=== PATIENT | male | born 1945 | race Caucasian/White ===

== ENCOUNTER 2022-10-21 13:02 | Emergency (ER) | payer OTHER ==
[~2022-10-21] VITALS: Ht 175.3 cm; Wt 136.0 kg
[2022-10-21 13:32] LABS: Basophils # (auto) 0.2 10 ^3/uL (0-0.2); Basophils % (auto) 1.1 % (0.0-2.0); Eosinophils # (auto) 0.2 10 ^3/uL (0-0.8); Eosinophils % (auto) 1.4 % (0.0-7.0); Hemoglobin 12.8 g/dL (13.5-17.5); Lymphocytes # (auto) 1.9 10 ^3/uL (0.4-5.4); Lymphocytes % (auto) 12.5 % (10.0-50.0); Mean Corpuscular Hemoglobin 29.9 pg (28.0-32.0); Mean Corpuscular Hgb Conc. 31.1 g/dL (32.0-36.0); Mean Corpuscular Volume 96.1 fL (80.0-100.0); Monocytes # (auto) 1.5 10 ^3/uL (0-1.3); Monocytes % (auto) 9.6 % (0.0-12.0); Neutrophils # (auto) 11.7 10 ^3/uL (1.6-8.6); Neutrophils % (auto) 75.4 % (37.0-80.0); Nucleated Red Blood Cells % 0.5 %; Red Blood Cells 4.27 10^6/uL (4.5-5.90); Red Cell Distribution Width 17.2 % (11.8-14.3); White Blood Cell 15.5 10^3/uL (4.4-10.8)
[2022-10-21 13:47] LABS: INR 1.07 (0.9-1.15); Partial Thromboplastin Time 25.3 sec (24.6-33.4)
[2022-10-21 13:51] LABS: Calcium 8.6 mg/dL (8.5-10.1)
[2022-10-21 13:55] LABS: BUN/Creatinine Ratio 17.8; Bilirubin, Total 0.5 mg/dL (0.2-1.0); Total Protein 6.8 g/dL (6.4-8.2)
[2022-10-21 14:16] LABS: Potassium 5.7 mmol/L (3.5-5.1)
[2022-10-21] MEDS ORDERED: IPRATROPIUM BROM 0.5 MG/2.5ML INH SOL NEB ONE (14:30)
[2022-10-21] MEDS ORDERED: InsuLIN REG 1unit/0.01ml Soln (100units/ml) IV ONE (14:30)
[2022-10-21] MEDS ORDERED: FUROSEMIDE 20 MG/2 ML VIAL IV ONE (14:30)
[2022-10-21] MEDS ORDERED: SODIUM BICARBONATE 8.4% INJ 50ML SYRINGE IV ONE (14:30)
[2022-10-21] MEDS ORDERED: ALBUTEROL SULF 2.5 MG/0.5ML(0.5%) NEB SOLN NEB ONE (14:30)
[2022-10-21] MEDS ORDERED: DEXTROSE (50%) 50ML SYRG IV ONE (14:30)
[2022-10-21] MEDS ORDERED: CALCIUM GLUC 1,000mg/50ml-NS 50 ML IV ONE (14:30)
[2022-10-21] MEDS ORDERED: DexAMETHasone SOD PHOS 10MG/1ML VIAL INJ IV ONE (14:30)
[2022-10-21] MEDS: MAGNESIUM SULFATE 1GM/100ML 100 ML IV SCH ×2 (15:32→16:38)
[2022-10-21] MEDS ORDERED: cefTRIAXone 1GM/50ML D5W 50 ML IV ONE (16:45)
[2022-10-21] MEDS ORDERED: AZITHROMYCIN 500MG/ 250ML 250 ML IV ONE (16:45)
[2022-10-21 22:00] VITALS: BP 119/83
== END 2022-10-21 18:32 | disposition short-term general hospital (02) ==
LOC: ER 13:02 → EDBD 13:02 → ER 18:32
DX: J18.9 Pneumonia, unspecified organism (principal); J44.9 Chronic obstructive pulmonary disease, unspecified; E87.5 Hyperkalemia; I50.9 Heart failure, unspecified; E11.22 Type 2 diabetes mellitus with diabetic chronic kidney disease; N18.9 Chronic kidney disease, unspecified; Z20.822 Contact with and (suspected) exposure to COVID-19
CPT/HCPCS: 36415; 71045; 71250; 80053; 82962; 83735; 83880; 84132; 84484; 85025; 85610; 85730; 87426; 87804; 93306; 94644; 96365; 96366; 96368; 96375; 99291; J0456; J0610; J0696; J1100; J1815; J1940; J3475; J7042; J7644

== ENCOUNTER 2024-01-09 14:32 | Inpatient (IN) | payer OTHER ==
[~2024-01-09] VITALS: Ht 177.8 cm; Wt 138.8 kg
[2024-01-09 15:33] LABS: Red Blood Cells 3.76 10^6/uL (4.5-5.90)
[2024-01-09 15:35] LABS: Hematocrit 34.1 % (41.0-53.0); Hemoglobin 10.5 g/dL (13.5-17.5); Mean Corpuscular Hemoglobin 27.9 pg (28.0-32.0); Mean Corpuscular Hgb Conc. 30.8 g/dL (32.0-36.0); Mean Corpuscular Volume 90.7 fL (80.0-100.0); Red Cell Distribution Width 17.3 % (11.8-14.3)
[2024-01-09 15:40] LABS: Basophils % (manual) 0 (0.0-2.0); Blast Cells 0; Eosinophils % (manual) 0 (0-7); Metamyelocytes % 0; Myelocytes % 0; Promyelocytes % 0; Reactive Lymphocytes 0; White Blood Cell 31.6 10^3/uL (4.4-10.8)
[2024-01-09 15:43] VITALS: PULSE 69; RESP 16; O2SAT 98
[2024-01-09 15:51] LABS: Alanine Aminotransferase 32 U/L (7-40); Albumin 3.1 g/dL (3.2-4.8); Alkaline Phosphatase 202 U/L (46-116); Anion Gap 12 (5-15); Aspartate Aminotransferase 51 U/L (13-40); BUN/Creatinine Ratio 19.6 (10.0-20.0); Bilirubin, Total 1.4 mg/dL (0.2-1.0); Calcium 7.9 mg/dL (8.5-10.1); Carbon Dioxide 23 mmol/L (20-30); Chloride 97 mmol/L (98-107); Glucose 127 mg/dL (74-106); Potassium 4.8 mmol/L (3.5-5.1); Sodium 132 mmol/L (136-145); Total Protein 6.1 g/dL (5.7-8.2)
[2024-01-09 15:59] LABS: Blood Urea Nitrogen 122 mg/dL (9-23)
[2024-01-09] MEDS: LIDOCAINE 2% JELLY 11ml (GLYDO) UR ONE (16:28)
[2024-01-09 16:32] LABS: Anisocytosis Slight; Band Neutrophils % (manual) 5; Large Platelets FEW; Lymphocytes % (manual) 5 (10.0-50.0); Monocytes % (manual) 5 (0-12); Platelet Estimate Adequate
[2024-01-09 16:33] LABS: Target Cell FEW
[2024-01-09 17:12] LABS: Urine Bacteria NONE SEEN /hpf (None Seen); Urine Blood Negative /uL (Negative); Urine Clarity HAZY (Clear); Urine Color Yellow (Yellow); Urine Hyaline Cast MOD /lpf (0 - 2); Urine Protein, UAD 1+ (Negative); Urine Specific Gravity 1.016 (1.001-1.035); Urine WBC 10 /hpf (0 - 3)
[2024-01-09 17:25] LABS: COVID19 ANTIGEN SOFIA FIA NEGATIVE (NEGATIVE); Rapid Influenza A Negative (Negative); Rapid Influenza B Negative (Negative)
[2024-01-09] MEDS ORDERED: NOREPINEPHRINE 8 MG/250ML KIT 250 ML IV SCH ×2 (17:30)
[2024-01-09] MEDS: NOREPINEPHRINE 8 MG/250ML KIT 250 ML IV SCH (18:24)
[2024-01-09] MEDS: cefTRIAXone 1GM/50ML D5W 50 ML IV ONE (18:39)
[2024-01-09] MEDS ORDERED: NITROGLYCERIN 0.4 MG SL TAB SL PRN (20:00)
[2024-01-09] MEDS ORDERED: ONDANSETRON HCL 4 MG/2 ML VIAL IV PRN (20:00)
[2024-01-09] MEDS ORDERED: MORPHINE SULFATE INJ 2 MG/ml SYRG IV PRN (20:00)
[2024-01-09] MEDS ORDERED: ALBUMIN 25% 50 ML IV ONE (20:00)
[2024-01-09] MEDS ORDERED: DEXTROSE (50%) 50ML SYRG IV PRN (20:00)
[2024-01-09] MEDS ORDERED: DOCUSATE SOD 100 MG CAP PO PRN (20:00)
[2024-01-09 20:50] LABS: Magnesium 1.6 mg/dL (1.6-2.6)
[2024-01-09] MEDS ORDERED: CARV6.2551 PO (20:51)
[2024-01-09] MEDS ORDERED: ALLO100T PO (20:51)
[2024-01-09] MEDS ORDERED: LISI-275 PO (20:51)
[2024-01-09] MEDS ORDERED: APIX5TAB PO (20:51)
[2024-01-09] MEDS ORDERED: TAMS0.4C36 PO (20:51)
[2024-01-09] MEDS: BUMETANIDE 2.5mg/10ml (0.25 mg/ml) INJ IV ONE ×2 (21:28→21:46)
[2024-01-09] MEDS: CARVEDILOL 3.125 MG TAB PO SCH (21:29)
[2024-01-09] MEDS: ACCU-CHEK COMFORT CURVE STRIP VI SCH (21:39)
[2024-01-09] MEDS: InsuLIN REG 1unit/0.01ml Soln (100units/ml) SC SCH (21:44)
[2024-01-09] MEDS: HEPARIN SODIUM (PORCINE) 5000 UNITS/ML 1ML VIAL SC SCH (21:45)
[2024-01-09 21:48] LABS: % Iron Saturation 7.4 % (20-55)
[2024-01-09] MEDS: AZITHROMYCIN 500MG/ 250ML 250 ML IV ONE (23:35)
[2024-01-10 00:13] VITALS: BP 102/41; PULSE 75; RESP 21; TEMP 98.1; O2SAT 5; O2SAT 95
[2024-01-10 05:21] LABS: Hematocrit 32.7 % (41.0-53.0); Hemoglobin 10.4 g/dL (13.5-17.5); Mean Corpuscular Hemoglobin 28.4 pg (28.0-32.0); Mean Corpuscular Hgb Conc. 31.6 g/dL (32.0-36.0); Mean Corpuscular Volume 89.7 fL (80.0-100.0); Red Blood Cells 3.65 10^6/uL (4.5-5.90); Red Cell Distribution Width 17.4 % (11.8-14.3); White Blood Cell 27.3 10^3/uL (4.4-10.8)
[2024-01-10 05:28] LABS: Basophils % (manual) 0 (0.0-2.0); Blast Cells 0; Eosinophils % (manual) 0 (0-7); Lymphocytes % (manual) 0 (10.0-50.0); Metamyelocytes % 0; Myelocytes % 0; Promyelocytes % 0; Reactive Lymphocytes 0
[2024-01-10 05:39] LABS: Alanine Aminotransferase 28 U/L (7-40); Albumin 3.3 g/dL (3.2-4.8); Alkaline Phosphatase 201 U/L (46-116); Anion Gap 12 (5-15); Aspartate Aminotransferase 42 U/L (13-40); BUN/Creatinine Ratio 14.9 (10.0-20.0); Calcium 8.3 mg/dL (8.5-10.1); Carbon Dioxide 21 mmol/L (20-30); Chloride 97 mmol/L (98-107); Glucose 148 mg/dL (74-106); Potassium 4.6 mmol/L (3.5-5.1); Sodium 130 mmol/L (136-145)
[2024-01-10 05:40] LABS: Total Protein 6.5 g/dL (5.7-8.2)
[2024-01-10 05:45] LABS: Blood Urea Nitrogen 100 mg/dL (9-23)
[2024-01-10] MEDS: FUROSEMIDE 40 MG/4 ML VIAL IV SCH (06:30)
[2024-01-10 06:45] VITALS: O2SAT 95
[2024-01-10 07:36] LABS: Band Neutrophils % (manual) 4; Monocytes % (manual) 8 (0-12); Platelet Estimate Adequate; Target Cell FEW
[2024-01-10 07:45] VITALS: PULSE 84; RESP 15; O2SAT 92
[2024-01-10] MEDS: CALCIUM ACETATE 667 MG CAP PO SCH (08:29)
[2024-01-10] MEDS: DOPamine 1600MCG/ML D5W 250 ML IV SCH (08:29)
[2024-01-10] MEDS: cefTRIAXone 1GM/50ML D5W 50 ML IV SCH (09:27)
[2024-01-10] MEDS: MORPHINE SULFATE INJ 2 MG/ml SYRG IV ONE (09:58)
[2024-01-10] MEDS: AZITHROMYCIN 500MG/ 250ML 250 ML IV SCH (12:05)
[2024-01-10] MEDS: PANTOPRAZOLE 40 MG/10 ML VIAL INJ IV SCH (12:05)
[2024-01-10] MEDS: TAMSULOSIN HYDROCHLORIDE 0.4 MG CAP PO SCH (12:06)
[2024-01-10 15:06] LABS: Triglycerides 107 mg/dL (< 150)
[2024-01-10 15:07] LABS: LDL Cholesterol 27 mg/dL (< 100)
[2024-01-10 15:08] LABS: Cholesterol 73 mg/dL (< 200); HDL Cholesterol 13 mg/dL (40-59)
[2024-01-10 15:13] LABS: INR 1.58 (0.9-1.15); Prothrombin Time 16.1 sec (9.3-11.8)
[2024-01-10] MEDS: SODIUM CHL 0.9% 1000 ML BAG XX ONE (16:00)
[2024-01-10] MEDS: ALBUMIN 25% 50 ML IV ONE (16:01)
[2024-01-10] MEDS: MEROPENEM 1GM IVPB 50 ML IV ONE (17:45)
[2024-01-10] MEDS: IRON SUCROSE COMPLEX 100 ML IV SCH (18:08)
[2024-01-10 19:00] VITALS: O2SAT 94
[2024-01-10 19:30] VITALS: PULSE 82; RESP 18; O2SAT 90
[2024-01-11] VITALS (136 sets, daily range): BP systolic 85–121; BP diastolic 37–64; PULSE 71–112; RESP 11–25; TEMP 96.5–98.9; O2SAT 87–99
[2024-01-11] MEDS: MEROPENEM 1GM IVPB 50 ML IV SCH (00:40)
[2024-01-11 04:30] LABS: Basophils # (auto) 0 10 ^3/uL (0-0.2); Basophils % (auto) 0.2 % (0.0-2.0); Eosinophils # (auto) 0.1 10 ^3/uL (0-0.8); Eosinophils % (auto) 0.2 % (0.0-7.0); Hematocrit 36.6 % (41.0-53.0); Hemoglobin 11.6 g/dL (13.5-17.5); Lymphocytes # (auto) 3.3 10 ^3/uL (0.4-5.4); Lymphocytes % (auto) 15.8 % (10.0-50.0); Mean Corpuscular Hemoglobin 28.5 pg (28.0-32.0); Mean Corpuscular Hgb Conc. 31.6 g/dL (32.0-36.0); Mean Corpuscular Volume 90.1 fL (80.0-100.0); Monocytes # (auto) 1.2 10 ^3/uL (0-1.3); Monocytes % (auto) 5.9 % (0.0-12.0); Neutrophils # (auto) 16.5 10 ^3/uL (1.6-8.6); Neutrophils % (auto) 77.9 % (37.0-80.0); Red Blood Cells 4.06 10^6/uL (4.5-5.90); Red Cell Distribution Width 17.9 % (11.8-14.3); White Blood Cell 21.1 10^3/uL (4.4-10.8)
[2024-01-11 04:45] LABS: INR 1.56 (0.9-1.15); Prothrombin Time 15.9 sec (9.3-11.8)
[2024-01-11 05:06] LABS: Alanine Aminotransferase 22 U/L (7-40); Albumin 3.3 g/dL (3.2-4.8); Alkaline Phosphatase 177 U/L (46-116); Anion Gap 12 (5-15); Aspartate Aminotransferase 27 U/L (13-40); BUN/Creatinine Ratio 14.5 (10.0-20.0); Calcium 8.6 mg/dL (8.5-10.1); Carbon Dioxide 24 mmol/L (20-30); Chloride 97 mmol/L (98-107); Glucose 127 mg/dL (74-106); Potassium 4.3 mmol/L (3.5-5.1); Sodium 133 mmol/L (136-145)
[2024-01-11 05:07] LABS: Bilirubin, Total 0.8 mg/dL (0.2-1.0); Total Protein 6.5 g/dL (5.7-8.2)
[2024-01-11 05:12] LABS: Blood Urea Nitrogen 85 mg/dL (9-23)
[2024-01-11] MEDS: ACETAMINOPHEN 325 MG TAB PO PRN (07:01)
[2024-01-11] MEDS ORDERED: FURO20TA3 PO (07:49)
[2024-01-11] MEDS ORDERED: INSU1INJ3 (07:49)
[2024-01-11] MEDS ORDERED: SODIPOW6 (07:49)
[2024-01-11] MEDS ORDERED: AMLO1TAB22 PO (07:49)
[2024-01-11 08:57] LABS: Hepatitis B Surface Antigen Negative (Negative)
[2024-01-11 09:18] LABS: Hepatitis A Ab IgM Negative
[2024-01-11 09:19] LABS: Hepatitis B Core IgM Negative; Hepatitis C Antibody Negative (Negative)
[2024-01-11] MEDS: SODIUM CHL 0.9% 1000 ML BAG XX ONE (09:29)
[2024-01-11] MEDS: ALBUMIN 25% 100 ML IV SCH (10:40)
[2024-01-11] MEDS: VASOPRESSIN 20 UNITS in SODIUM CHL 0.9% 99 ML IV SCH (15:18)
[2024-01-11 15:43] LABS: Base Excess -6.3 mmol/L (-2.0-2.0)
[2024-01-11] MEDS: IPRATROPIUM BROM 0.5 MG/2.5ML INH SOL NEB PRN (15:47)
[2024-01-11] MEDS: LEVALBUTEROL HCL 1.25 MG/3 ML NEB NEB PRN (15:47)
[2024-01-11] MEDS: EPINEPHrine HCL 250 ML IV SCH (17:20)
[2024-01-11] MEDS: IPRATROPIUM BROM 0.5 MG/2.5ML INH SOL NEB SCH (17:38)
[2024-01-11] MEDS: LEVALBUTEROL HCL 1.25 MG/3 ML NEB NEB SCH (17:38)
[2024-01-11] MEDS: Nepro With Carbsteady ButterPecan 8oz Carton PO SCH (18:00)
[2024-01-11] MEDS: ETOMIDATE (2MG/ML) 20ML VIAL IV ONE ×2 (18:52→18:57)
[2024-01-11] MEDS: ROCURONIUM 10MG/ML 10ML VIAL IV ONE ×2 (18:52→18:57)
[2024-01-11] MEDS: PHENYLEPHRINE IV 250 ML IV ONE (18:56)
[2024-01-11] MEDS: fentaNYL Drip 2500mCg/250mlNS 250 ML IV ONE (19:05)
[2024-01-11] MEDS: MIDAZOLAM DRIP 50 mg/50mL 50 ML IV ONE (19:05)
[2024-01-11] MEDS: PHENYLEPHRINE IV 250 ML IV SCH (19:45)
[2024-01-11] MEDS: fentaNYL Drip 2500mCg/250mlNS 250 ML IV SCH (19:55)
[2024-01-11] MEDS: MIDAZOLAM DRIP 50 mg/50mL 50 ML IV SCH (19:55)
[2024-01-11] MEDS: HYDROCORTISONE SOD SUCC 100 MG/2ML INJ VIAL IV ONE (20:06)
[2024-01-11 20:24] LABS: Base Excess -8.6 mmol/L (-2.0-2.0)
[2024-01-11] MEDS ORDERED: EPOETIN ALFA-EPBX 10,000 UNIT/1ML VIAL SC ONE (21:00)
[2024-01-11] MEDS: HYDROCORTISONE SOD SUCC 100 MG/2ML INJ VIAL IV SCH (21:39)
[2024-01-11] MEDS: SODIUM BICARB 8.4% 50Meq/50ml SYR Vial IV ONE ×2 (21:39→23:36)
[2024-01-11] MEDS: PHENYLEPHRINE INJ 80 MG in SODIUM CHL 0.9% 242 ML IV SCH (22:16)
[2024-01-11] MEDS: EPINEPHrine HCL INJECTION 16 MG in D5W 5% 234 ML IV SCH (22:16)
[2024-01-11] MEDS: NOREPINEPHRINE BITARTRATE 32 MG in SODIUM CHL 0.9% 218 ML IV SCH (22:17)
[2024-01-11] MEDS: SODIUM CHLORIDE 0.9% 1,000 ML IV ONE (23:36)
[2024-01-11] MEDS: SODIUM CHLORIDE 0.9% 500 ML IV ONE (23:36)
[2024-01-12] VITALS (135 sets, daily range): BP systolic 104–165; BP diastolic 52–94; PULSE 77–111; RESP 20–26; TEMP 97.9–99.1; O2SAT 90–97
[2024-01-12] LABS: Base Excess -7.6 mmol/L (-2.0-2.0)
[2024-01-12] MEDS: SODIUM BICARB 50mEq/50ml Vial 150 ML in D5W 5% 1,000 ML IV SCH (00:33)
[2024-01-12 03:53] LABS: Hematocrit 35.9 % (41.0-53.0); Hemoglobin 11.1 g/dL (13.5-17.5); Mean Corpuscular Hemoglobin 27.8 pg (28.0-32.0); Mean Corpuscular Hgb Conc. 31.1 g/dL (32.0-36.0); Mean Corpuscular Volume 89.4 fL (80.0-100.0); Red Blood Cells 4.01 10^6/uL (4.5-5.90); Red Cell Distribution Width 17.7 % (11.8-14.3); White Blood Cell 23.8 10^3/uL (4.4-10.8)
[2024-01-12 03:56] LABS: Alanine Aminotransferase 16 U/L (7-40); Albumin 3.5 g/dL (3.2-4.8); Alkaline Phosphatase 143 U/L (46-116); Anion Gap 20 (5-15); Aspartate Aminotransferase 16 U/L (13-40); BUN/Creatinine Ratio 14.4 (10.0-20.0); Calcium 8.5 mg/dL (8.7-10.4); Carbon Dioxide 18 mmol/L (20-30); Chloride 98 mmol/L (98-107); Magnesium 1.8 mg/dL (1.6-2.6); Potassium 4.8 mmol/L (3.5-5.1); Sodium 136 mmol/L (136-145)
[2024-01-12 03:57] LABS: Bilirubin, Total 0.9 mg/dL (0.2-1.0); Phosphorus 7.5 mg/dL (2.4-5.1); Total Protein 6.4 g/dL (5.7-8.2)
[2024-01-12 03:58] LABS: Basophils % (manual) 0 (0.0-2.0); Blast Cells 0; Promyelocytes % 0; Reactive Lymphocytes 0
[2024-01-12 04:07] LABS: Blood Urea Nitrogen 62 mg/dL (9-23); Glucose 265 mg/dL (74-106)
[2024-01-12 04:33] LABS: Band Neutrophils % (manual) 22; Eosinophils % (manual) 1 (0-7); Lymphocytes % (manual) 1 (10.0-50.0); Metamyelocytes % 2; Monocytes % (manual) 1 (0-12); Myelocytes % 2; Target Cell FEW
[2024-01-12 04:34] LABS: Large Platelets FEW; Platelet Estimate Adequa; Stomatocytes Few
[2024-01-12] MEDS: SODIUM CHL 0.9% 1000 ML BAG XX ONE (07:00)
[2024-01-12 08:08] LABS: Base Excess -5.3 mmol/L (-2.0-2.0)
[2024-01-13] VITALS (107 sets, daily range): BP systolic 84–140; BP diastolic 49–80; PULSE 71–93; RESP 10–25; TEMP 97.4–98.8; O2SAT 91–97
[2024-01-13 04:46] LABS: Basophils # (auto) 0.3 10 ^3/uL (0-0.2); Basophils % (auto) 0.9 % (0.0-2.0); Eosinophils # (auto) 0 10 ^3/uL (0-0.8); Eosinophils % (auto) 0.1 % (0.0-7.0); Hematocrit 37.5 % (41.0-53.0); Hemoglobin 11.7 g/dL (13.5-17.5); Lymphocytes # (auto) 0.6 10 ^3/uL (0.4-5.4); Lymphocytes % (auto) 1.6 % (10.0-50.0); Mean Corpuscular Hemoglobin 27.5 pg (28.0-32.0); Mean Corpuscular Hgb Conc. 31.2 g/dL (32.0-36.0); Mean Corpuscular Volume 88.1 fL (80.0-100.0); Monocytes # (auto) 0.9 10 ^3/uL (0-1.3); Monocytes % (auto) 2.4 % (0.0-12.0); Neutrophils # (auto) 33.8 10 ^3/uL (1.6-8.6); Nucleated Red Blood Cells % 1.5 %; Red Blood Cells 4.25 10^6/uL (4.5-5.90)
[2024-01-13 04:47] LABS: White Blood Cell 35.6 10^3/uL (4.4-10.8)
[2024-01-13 05:16] LABS: Anion Gap 10 (5-15); Carbon Dioxide 27 mmol/L (20-30); Chloride 100 mmol/L (98-107); Potassium 3.9 mmol/L (3.5-5.1); Sodium 137 mmol/L (136-145)
[2024-01-13 05:22] LABS: Glucose 228 mg/dL (74-106)
[2024-01-13 05:23] LABS: BUN/Creatinine Ratio 13.5 (10.0-20.0)
[2024-01-13 05:33] LABS: Blood Urea Nitrogen 45 mg/dL (9-23)
[2024-01-13 08:28] LABS: Base Excess 4.4 mmol/L (-2.0-2.0)
[2024-01-13] MEDS: FUROSEMIDE 40 MG/4 ML VIAL IV SCH (16:54)
[2024-01-14] VITALS (109 sets, daily range): BP systolic 102–136; BP diastolic 39–74; PULSE 62–92; RESP 12–25; TEMP 96.4–97.7; O2SAT 89–100
[2024-01-14] MEDS: SODIUM BICARB 8.4% 50Meq/50ml SYR INJ ONE (01:42)
[2024-01-14] MEDS: SODIUM BICARB 8.4% 50Meq/50ml SYR Vial IV ONE (01:42)
[2024-01-14 04:07] LABS: Mean Corpuscular Hemoglobin 28.6 pg (28.0-32.0)
[2024-01-14 04:08] LABS: Hematocrit 38.8 % (41.0-53.0); Hemoglobin 12.6 g/dL (13.5-17.5); Mean Corpuscular Hgb Conc. 32.4 g/dL (32.0-36.0); Mean Corpuscular Volume 88.3 fL (80.0-100.0); Red Blood Cells 4.39 10^6/uL (4.5-5.90); Red Cell Distribution Width 16.9 % (11.8-14.3)
[2024-01-14 04:13] LABS: Alanine Aminotransferase 11 U/L (7-40); Albumin 2.9 g/dL (3.2-4.8); Alkaline Phosphatase 131 U/L (46-116); Anion Gap 9 (5-15); Aspartate Aminotransferase 16 U/L (13-40); BUN/Creatinine Ratio 14.9 (10.0-20.0); Bilirubin, Total 1.2 mg/dL (0.2-1.0); Blood Urea Nitrogen 53 mg/dL (9-23); Calcium 8.8 mg/dL (8.7-10.4); Carbon Dioxide 27 mmol/L (20-30); Chloride 100 mmol/L (98-107); Glucose 208 mg/dL (74-106); Potassium 3.8 mmol/L (3.5-5.1); Sodium 136 mmol/L (136-145); Total Protein 5.8 g/dL (5.7-8.2)
[2024-01-14 04:32] LABS: White Blood Cell 37.6 10^3/uL (4.4-10.8)
[2024-01-14 04:33] LABS: Band Neutrophils % (manual) 0; Basophils % (manual) 0 (0.0-2.0); Blast Cells 0; Eosinophils % (manual) 0 (0-7); Metamyelocytes % 0; Myelocytes % 0; Promyelocytes % 0; Reactive Lymphocytes 0
[2024-01-14 05:22] LABS: Anisocytosis Slight; Lymphocytes % (manual) 2 (10.0-50.0); Monocytes % (manual) 4 (0-12); Platelet Estimate Adequate
[2024-01-14 05:23] LABS: Target Cell MODERATE
[2024-01-14 05:24] LABS: Hypochromia Slight
[2024-01-14] MEDS: SODIUM CHL 0.9% 1000 ML BAG XX ONE (07:00)
[2024-01-14 08:09] LABS: Base Excess 5.3 mmol/L (-2.0-2.0)
[2024-01-14] MEDS ORDERED: CLINIMIX PER PHARMACY 0 ML IV SCH (18:00)
[2024-01-14] MEDS: AMINO ACID INFUSION IN D10W 1,000 ML IV SCH (20:22)
[2024-01-15] VITALS (103 sets, daily range): BP systolic 56–164; BP diastolic -8–79; PULSE 56–76; RESP 13–25; TEMP 96.3–98.6; O2SAT 89–96
[2024-01-15] MEDS: InsuLIN REG 1unit/0.01ml Soln (100units/ml) SC SCH
[2024-01-15] MEDS ORDERED: DEXTROSE (50%) 50ML SYRG IV SCH
[2024-01-15] MEDS: ACCU-CHEK COMFORT CURVE STRIP VI SCH
[2024-01-15 04:11] LABS: Hematocrit 36.4 % (41.0-53.0); Hemoglobin 11.6 g/dL (13.5-17.5); Mean Corpuscular Hemoglobin 28.2 pg (28.0-32.0); Mean Corpuscular Hgb Conc. 31.9 g/dL (32.0-36.0); Mean Corpuscular Volume 88.3 fL (80.0-100.0); Red Blood Cells 4.12 10^6/uL (4.5-5.90); Red Cell Distribution Width 17.2 % (11.8-14.3); White Blood Cell 26.2 10^3/uL (4.4-10.8)
[2024-01-15 04:16] LABS: Basophils % (manual) 0 (0.0-2.0); Blast Cells 0; Eosinophils % (manual) 0 (0-7); Myelocytes % 0; Promyelocytes % 0; Reactive Lymphocytes 0
[2024-01-15 04:25] LABS: Alanine Aminotransferase 10 U/L (7-40); Albumin 2.8 g/dL (3.2-4.8); Alkaline Phosphatase 115 U/L (46-116); Anion Gap 8 (5-15); Aspartate Aminotransferase 15 U/L (13-40); BUN/Creatinine Ratio 18.4 (10.0-20.0); Calcium 8.6 mg/dL (8.7-10.4); Carbon Dioxide 28 mmol/L (20-30); Chloride 101 mmol/L (98-107); Glucose 251 mg/dL (74-106); Magnesium 1.6 mg/dL (1.6-2.6); Potassium 3.6 mmol/L (3.5-5.1); Sodium 137 mmol/L (136-145)
[2024-01-15 04:26] LABS: Bilirubin, Total 0.8 mg/dL (0.2-1.0); Blood Urea Nitrogen 63 mg/dL (9-23); Phosphorus 3.9 mg/dL (2.4-5.1); Total Protein 5.5 g/dL (5.7-8.2)
[2024-01-15 05:17] LABS: Band Neutrophils % (manual) 6; Lymphocytes % (manual) 4 (10.0-50.0); Metamyelocytes % 1; Monocytes % (manual) 6 (0-12)
[2024-01-15 05:19] LABS: Platelet Estimate Adequate; Target Cell FEW
[2024-01-15 05:20] LABS: Anisocytosis Slight; Large Platelets FEW
[2024-01-15] MEDS: SODIUM CHL 0.9% 1000 ML BAG XX ONE (07:00)
[2024-01-15 07:29] LABS: Base Excess 2.3 mmol/L (-2.0-2.0)
[2024-01-15] MEDS: POTASSIUM CHL 20MEQ/100ML 100 ML IV ONE (11:00)
[2024-01-15] MEDS ORDERED: ENOXAPARIN SOD 150 MG/1 ML SYRINGE SC ONE (15:45)
[2024-01-15] MEDS: MAGNESIUM SULFATE 1GM/100ML 100 ML IV ONE (16:02)
[2024-01-15 17:07] LABS: INR 1.3 (0.9-1.15); Partial Thromboplastin Time 31.8 SEC (24.5-34.5); Prothrombin Time 13.4 sec (9.3-11.8)
[2024-01-15] MEDS: CEFEPIME 2GM/50ML NS 50 ML IV ONE (17:11)
[2024-01-15] MEDS: HEPARIN DRIP/D5W 100UNITS/ML 250 ML IV SCH (18:38)
[2024-01-15] MEDS: HYDROCORTISONE SOD SUCC 100 MG/2ML INJ VIAL IV SCH (21:30)
[2024-01-16] VITALS (100 sets, daily range): BP systolic 84–145; BP diastolic 39–75; PULSE 45–81; RESP 17–19; TEMP 97.7–98.8; O2SAT 89–98
[2024-01-16 01:40] LABS: INR 1.27 (0.9-1.15); Partial Thromboplastin Time 32.2 SEC (24.5-34.5); Prothrombin Time 13.1 sec (9.3-11.8)
[2024-01-16] MEDS: HEPARIN SODIUM (PORCINE) 5000 UNITS/ML 1ML VIAL IV ONE (03:04)
[2024-01-16 04:15] LABS: Hematocrit 36.4 % (41.0-53.0); Hemoglobin 11.4 g/dL (13.5-17.5); Mean Corpuscular Hemoglobin 28.2 pg (28.0-32.0); Mean Corpuscular Hgb Conc. 31.3 g/dL (32.0-36.0); Red Blood Cells 4.05 10^6/uL (4.5-5.90); Red Cell Distribution Width 17.1 % (11.8-14.3); White Blood Cell 21.5 10^3/uL (4.4-10.8)
[2024-01-16 04:21] LABS: Basophils % (manual) 0 (0.0-2.0); Blast Cells 0; Eosinophils % (manual) 0 (0-7); Myelocytes % 0; Promyelocytes % 0; Reactive Lymphocytes 0
[2024-01-16 04:31] LABS: Albumin 3.3 g/dL (3.2-4.8); Alkaline Phosphatase 105 U/L (46-116); Anion Gap 7 (5-15); Aspartate Aminotransferase 17 U/L (13-40); BUN/Creatinine Ratio 19.6 (10.0-20.0); Blood Urea Nitrogen 56 mg/dL (9-23); Calcium 8.7 mg/dL (8.7-10.4); Carbon Dioxide 29 mmol/L (20-30); Chloride 101 mmol/L (98-107); Glucose 196 mg/dL (74-106); Magnesium 1.9 mg/dL (1.6-2.6); Phosphorus 4.3 mg/dL (2.4-5.1); Potassium 3.7 mmol/L (3.5-5.1); Sodium 137 mmol/L (136-145)
[2024-01-16 04:32] LABS: Bilirubin, Total 0.8 mg/dL (0.2-1.0); Total Protein 5.9 g/dL (5.7-8.2)
[2024-01-16 04:34] LABS: Alanine Aminotransferase 9 U/L (7-40)
[2024-01-16 04:46] LABS: Anisocytosis Slight; Band Neutrophils % (manual) 2; Lymphocytes % (manual) 8 (10.0-50.0); Metamyelocytes % 1; Monocytes % (manual) 9 (0-12); Platelet Estimate Adequate
[2024-01-16 04:47] LABS: Target Cell MODERATE
[2024-01-16 06:59] LABS: Base Excess 3.3 mmol/L (-2.0-2.0)
[2024-01-16 08:30] LABS: INR 1.31 (0.9-1.15); Partial Thromboplastin Time 63.8 SEC (24.5-34.5); Prothrombin Time 13.5 sec (9.3-11.8)
[2024-01-16] MEDS: IOHEXOL 300 MG/ML 100ML BOTTLE IJ ONE (08:33)
[2024-01-16] MEDS: GASTROGRAFIN 30 ML SOL ONE (08:33)
[2024-01-16] MEDS ORDERED: ENOXAPARIN SOD 150 MG/1 ML SYRINGE SC SCH (10:00)
[2024-01-16] MEDS ORDERED: CEFEPIME 1GM/ 50ML 50 ML IV SCH (10:00)
[2024-01-16] MEDS: CEFEPIME 2GM/50ML NS 50 ML IV SCH (10:18)
[2024-01-16] MEDS: MAGNESIUM SULFATE 1GM/100ML 100 ML IV ONE (13:17)
[2024-01-16] MEDS: POTASSIUM CHL 20MEQ/100ML 100 ML IV ONE (14:34)
[2024-01-16 14:53] LABS: INR 1.34 (0.9-1.15); Prothrombin Time 13.8 sec (9.3-11.8)
[2024-01-16] MEDS ORDERED: DOPamine 1600MCG/ML D5W 250 ML IV SCH (18:00)
[2024-01-16] MEDS: DOPamine 1600MCG/ML D5W 250 ML IV SCH (19:07)
[2024-01-16 21:06] LABS: INR 1.27 (0.9-1.15); Partial Thromboplastin Time 50.4 SEC (24.5-34.5); Prothrombin Time 13.1 sec (9.3-11.8)
[2024-01-16] MEDS: Nepro With Carb Steady 1 Liter Bottle GT SCH (21:26)
[2024-01-17] VITALS (107 sets, daily range): BP systolic 79–180; BP diastolic 36–78; PULSE 56–99; RESP 16–20; TEMP 97.9–99; O2SAT 90–97
[2024-01-17 02:39] LABS: INR 1.26 (0.9-1.15); Partial Thromboplastin Time 33.7 SEC (24.5-34.5)
[2024-01-17] MEDS: HEPARIN DRIP/D5W 100UNITS/ML 250 ML IV SCH ×3 (03:00→20:15)
[2024-01-17] MEDS: HEPARIN SODIUM (PORCINE) 5000 UNITS/ML 1ML VIAL IV ONE (03:18)
[2024-01-17 04:26] LABS: Hematocrit 36.1 % (41.0-53.0); Hemoglobin 11.5 g/dL (13.5-17.5); Mean Corpuscular Hemoglobin 28.3 pg (28.0-32.0); Mean Corpuscular Hgb Conc. 31.7 g/dL (32.0-36.0); Mean Corpuscular Volume 89.2 fL (80.0-100.0); Red Blood Cells 4.05 10^6/uL (4.5-5.90); Red Cell Distribution Width 17.3 % (11.8-14.3); White Blood Cell 24.7 10^3/uL (4.4-10.8)
[2024-01-17 04:29] LABS: Basophils % (manual) 0 (0.0-2.0); Blast Cells 0; Promyelocytes % 0; Reactive Lymphocytes 0
[2024-01-17 04:41] LABS: Alanine Aminotransferase 14 U/L (7-40); Albumin 3.2 g/dL (3.2-4.8); Alkaline Phosphatase 107 U/L (46-116); Anion Gap 6 (5-15); Aspartate Aminotransferase 35 U/L (13-40); BUN/Creatinine Ratio 24.2 (10.0-20.0); Calcium 8.6 mg/dL (8.7-10.4); Carbon Dioxide 29 mmol/L (20-30); Chloride 100 mmol/L (98-107); Glucose 132 mg/dL (74-106); Magnesium 1.9 mg/dL (1.6-2.6); Phosphorus 4.7 mg/dL (2.4-5.1); Potassium 3.7 mmol/L (3.5-5.1); Sodium 135 mmol/L (136-145); Total Protein 5.8 g/dL (5.7-8.2)
[2024-01-17 04:52] LABS: Blood Urea Nitrogen 67 mg/dL (9-23)
[2024-01-17 05:30] LABS: Anisocytosis Slight; Band Neutrophils % (manual) 2; Eosinophils % (manual) 3 (0-7); Lymphocytes % (manual) 16 (10.0-50.0); Metamyelocytes % 1; Monocytes % (manual) 7 (0-12); Myelocytes % 2; Platelet Estimate Adequate; Target Cell MODERATE
[2024-01-17] MEDS: HYDROCORTISONE SOD SUCC 100 MG/2ML INJ VIAL IV SCH (11:44)
[2024-01-17 12:13] LABS: INR 1.32 (0.9-1.15); Prothrombin Time 13.6 sec (9.3-11.8)
[2024-01-17] MEDS: BUMETANIDE INJECTION 25 MG in GIVE UN-DILUTED 0 ML IV SCH (16:29)
[2024-01-17 19:37] LABS: INR 1.33 (0.9-1.15); Prothrombin Time 13.7 sec (9.3-11.8)
[2024-01-17 19:43] LABS: Partial Thromboplastin Time 90.1 SEC (24.5-34.5)
[2024-01-18] VITALS (107 sets, daily range): BP systolic 74–146; BP diastolic 36–67; PULSE 66–102; RESP 14–22; TEMP 98.4–99; O2SAT 92–100
[2024-01-18 02:16] LABS: Hemoglobin 10.1 g/dL (13.5-17.5); Red Blood Cells 3.62 10^6/uL (4.5-5.90)
[2024-01-18 02:18] LABS: Hematocrit 32.5 % (41.0-53.0); Mean Corpuscular Hgb Conc. 31.2 g/dL (32.0-36.0); Mean Corpuscular Volume 89.7 fL (80.0-100.0); Red Cell Distribution Width 17.1 % (11.8-14.3)
[2024-01-18 02:34] LABS: INR 1.33 (0.9-1.15); Partial Thromboplastin Time 65.9 SEC (24.5-34.5); Prothrombin Time 13.7 sec (9.3-11.8)
[2024-01-18 02:50] LABS: Anion Gap 5 (5-15); Blood Urea Nitrogen 60 mg/dL (9-23); Calcium 8.1 mg/dL (8.7-10.4); Carbon Dioxide 28 mmol/L (20-30); Chloride 103 mmol/L (98-107); Glucose 116 mg/dL (74-106); Potassium 3.6 mmol/L (3.5-5.1); Sodium 136 mmol/L (136-145)
[2024-01-18 02:52] LABS: White Blood Cell 30.7 10^3/uL (4.4-10.8)
[2024-01-18 02:54] LABS: Basophils % (manual) 0 (0.0-2.0); Blast Cells 0; Metamyelocytes % 0; Promyelocytes % 0; Reactive Lymphocytes 0
[2024-01-18 04:40] LABS: Band Neutrophils % (manual) 5; Eosinophils % (manual) 1 (0-7); Lymphocytes % (manual) 9 (10.0-50.0); Monocytes % (manual) 6 (0-12); Myelocytes % 3; Platelet Estimate Adequate; Target Cell MODERATE
[2024-01-18 04:41] LABS: Anisocytosis Slight
[2024-01-18 06:35] LABS: Base Excess 2.2 mmol/L (-2.0-2.0)
[2024-01-18 08:40] LABS: INR 1.31 (0.9-1.15); Prothrombin Time 13.5 sec (9.3-11.8)
[2024-01-18] MEDS: CEFEPIME 2GM/50ML NS 50 ML IV SCH (09:43)
[2024-01-18 15:23] LABS: INR 1.3 (0.9-1.15); Partial Thromboplastin Time 49.8 SEC (24.5-34.5); Prothrombin Time 13.4 sec (9.3-11.8)
[2024-01-18] MEDS: LIDOCAINE 1% (LOCAL ANESTH.) PF 5ml SDV ID ONE (17:54)
[2024-01-18] MEDS: HEPARIN DRIP/D5W 100UNITS/ML 250 ML IV SCH (20:16)
[2024-01-18] MEDS: SODIUM CHLOR 0.9% PF (SALINE LOCK) 10ML VIAL/SYR IV SCH (22:06)
[2024-01-19] VITALS (111 sets, daily range): BP systolic 90–129; BP diastolic 41–62; PULSE 71–106; RESP 14–37; TEMP 97.5–99.7; O2SAT 91–97
[2024-01-19 03:26] LABS: Hematocrit 32.3 % (41.0-53.0); Mean Corpuscular Volume 90.3 fL (80.0-100.0); Red Blood Cells 3.58 10^6/uL (4.5-5.90); Red Cell Distribution Width 17.6 % (11.8-14.3); White Blood Cell 27.7 10^3/uL (4.4-10.8)
[2024-01-19 03:33] LABS: Band Neutrophils % (manual) 0; Basophils % (manual) 0 (0.0-2.0); Blast Cells 0; Eosinophils % (manual) 0 (0-7); Metamyelocytes % 0; Myelocytes % 0; Promyelocytes % 0; Reactive Lymphocytes 0
[2024-01-19 03:35] LABS: Chloride 101 mmol/L (98-107); Potassium 3.6 mmol/L (3.5-5.1); Sodium 136 mmol/L (136-145)
[2024-01-19 03:36] LABS: Anion Gap 8 (5-15); Carbon Dioxide 27 mmol/L (20-30)
[2024-01-19 03:37] LABS: Calcium 8.3 mg/dL (8.7-10.4)
[2024-01-19 03:40] LABS: INR 1.28 (0.9-1.15); Partial Thromboplastin Time 51.4 SEC (24.5-34.5); Prothrombin Time 13.2 sec (9.3-11.8)
[2024-01-19 03:41] LABS: BUN/Creatinine Ratio 24.9 (10.0-20.0); Blood Urea Nitrogen 69 mg/dL (9-23); Glucose 116 mg/dL (74-106)
[2024-01-19 04:01] LABS: Lymphocytes % (manual) 5 (10.0-50.0); Monocytes % (manual) 8 (0-12); Platelet Estimate Adequate
[2024-01-19 07:54] LABS: Base Excess -0.1 mmol/L (-2.0-2.0)
[2024-01-19 09:01] LABS: INR 1.31 (0.9-1.15); Prothrombin Time 13.5 sec (9.3-11.8)
[2024-01-19] MEDS: FLUCONAZOLE 200MG/100ML 100 ML IV ONE (12:15)
[2024-01-19] MEDS: MIDAZOLAM DRIP 50 mg/50mL 50 ML IV SCH (13:30)
[2024-01-19] MEDS: NOREPINEPHRINE 8 MG/250ML KIT 250 ML IV SCH (15:30)
[2024-01-19] MEDS: CEFEPIME 2GM/50ML NS 50 ML IV SCH (21:29)
[2024-01-20] VITALS (108 sets, daily range): BP systolic 100–146; BP diastolic 41–84; PULSE 77–106; RESP 10–21; TEMP 98.2–99.1; O2SAT 92–100
[2024-01-20 04:32] LABS: Hematocrit 29.8 % (41.0-53.0); Hemoglobin 9.3 g/dL (13.5-17.5); Mean Corpuscular Hemoglobin 28.5 pg (28.0-32.0); Mean Corpuscular Hgb Conc. 31.3 g/dL (32.0-36.0); Mean Corpuscular Volume 91.3 fL (80.0-100.0); Red Blood Cells 3.27 10^6/uL (4.5-5.90); Red Cell Distribution Width 17.8 % (11.8-14.3); White Blood Cell 25.9 10^3/uL (4.4-10.8)
[2024-01-20 04:39] LABS: Basophils % (manual) 0 (0.0-2.0); Blast Cells 0; Myelocytes % 0; Promyelocytes % 0; Reactive Lymphocytes 0
[2024-01-20 04:42] LABS: Alanine Aminotransferase 17 U/L (7-40); Albumin 3.4 g/dL (3.2-4.8); Alkaline Phosphatase 121 U/L (46-116); Anion Gap 9 (5-15); Aspartate Aminotransferase 42 U/L (13-40); BUN/Creatinine Ratio 22.1 (10.0-20.0); Bilirubin, Total 0.9 mg/dL (0.2-1.0); Calcium 8.2 mg/dL (8.7-10.4); Carbon Dioxide 27 mmol/L (20-30); Chloride 102 mmol/L (98-107); Glucose 122 mg/dL (74-106); Magnesium 1.9 mg/dL (1.6-2.6); Potassium 3.5 mmol/L (3.5-5.1); Sodium 138 mmol/L (136-145); Total Protein 6.1 g/dL (5.7-8.2)
[2024-01-20 04:43] LABS: INR 1.3 (0.9-1.15); Partial Thromboplastin Time 45.8 SEC (24.5-34.5); Prothrombin Time 13.4 sec (9.3-11.8)
[2024-01-20 05:00] LABS: Blood Urea Nitrogen 50 mg/dL (9-23)
[2024-01-20] MEDS: HEPARIN DRIP/D5W 100UNITS/ML 250 ML IV SCH (05:15)
[2024-01-20 07:17] LABS: Base Excess 3.3 mmol/L (-2.0-2.0)
[2024-01-20 08:51] LABS: Band Neutrophils % (manual) 4; Eosinophils % (manual) 2 (0-7); Lymphocytes % (manual) 5 (10.0-50.0); Metamyelocytes % 1; Monocytes % (manual) 10 (0-12)
[2024-01-20 08:52] LABS: Anisocytosis Slight; Hypochromia Slight; Platelet Estimate Adequate
[2024-01-20 08:53] LABS: Target Cell FEW
[2024-01-20] MEDS: FLUCONAZOLE 200MG/100ML 100 ML IV SCH (09:04)
[2024-01-20 12:00] LABS: INR 1.33 (0.9-1.15); Prothrombin Time 13.7 sec (9.3-11.8)
[2024-01-20] MEDS: PROPOFOL 100 ML IV SCH (15:30)
[2024-01-20 18:16] LABS: INR 1.3 (0.9-1.15); Partial Thromboplastin Time 53.9 SEC (24.5-34.5); Prothrombin Time 13.4 sec (9.3-11.8)
[2024-01-20] MEDS: METOCLOPRAMIDE HCL 5MG/ml INJ 2ml VIAL IV SCH (23:01)
[2024-01-20] MEDS: fentaNYL Drip 2500mCg/250mlNS 250 ML IV SCH (23:18)
[2024-01-21] VITALS (102 sets, daily range): BP systolic 101–167; BP diastolic 40–99; PULSE 77–120; RESP 16–24; TEMP 98.1–98.8; O2SAT 89–100
[2024-01-21 01:11] LABS: INR 1.29 (0.9-1.15); Partial Thromboplastin Time 48.2 SEC (24.5-34.5); Prothrombin Time 13.3 sec (9.3-11.8)
[2024-01-21] MEDS: HEPARIN DRIP/D5W 100UNITS/ML 250 ML IV SCH ×3 (01:56→20:45)
[2024-01-21 03:42] LABS: Basophils # (auto) 0.1 10 ^3/uL (0-0.2); Basophils % (auto) 0.3 % (0.0-2.0); Eosinophils # (auto) 0.4 10 ^3/uL (0-0.8); Eosinophils % (auto) 1.5 % (0.0-7.0); Hematocrit 29.7 % (41.0-53.0); Hemoglobin 9.6 g/dL (13.5-17.5); Lymphocytes # (auto) 1.5 10 ^3/uL (0.4-5.4); Lymphocytes % (auto) 6.1 % (10.0-50.0); Mean Corpuscular Hemoglobin 29.3 pg (28.0-32.0); Mean Corpuscular Hgb Conc. 32.2 g/dL (32.0-36.0); Monocytes # (auto) 2.8 10 ^3/uL (0-1.3); Monocytes % (auto) 11.8 % (0.0-12.0); Neutrophils % (auto) 80.3 % (37.0-80.0); Red Blood Cells 3.27 10^6/uL (4.5-5.90); Red Cell Distribution Width 17.8 % (11.8-14.3); White Blood Cell 23.6 10^3/uL (4.4-10.8)
[2024-01-21 04:00] LABS: Alanine Aminotransferase 17 U/L (7-40); Albumin 3.4 g/dL (3.2-4.8); Alkaline Phosphatase 126 U/L (46-116); Anion Gap 10 (5-15); Aspartate Aminotransferase 42 U/L (13-40); BUN/Creatinine Ratio 20.6 (10.0-20.0); Blood Urea Nitrogen 58 mg/dL (9-23); Carbon Dioxide 28 mmol/L (20-30); Chloride 99 mmol/L (98-107); Glucose 109 mg/dL (74-106); Potassium 3.7 mmol/L (3.5-5.1); Sodium 137 mmol/L (136-145)
[2024-01-21 04:01] LABS: Bilirubin, Total 0.9 mg/dL (0.2-1.0); Total Protein 6.2 g/dL (5.7-8.2)
[2024-01-21 11:30] LABS: INR 1.32 (0.9-1.15); Prothrombin Time 13.6 sec (9.3-11.8)
[2024-01-21 11:33] LABS: Partial Thromboplastin Time > 139.0 SEC (24.5-34.5)
[2024-01-21 19:46] LABS: INR 1.23 (0.9-1.15); Prothrombin Time 12.7 sec (9.3-11.8)
[2024-01-22] VITALS (93 sets, daily range): BP systolic 97–155; BP diastolic 31–64; PULSE 71–109; RESP 15–24; TEMP 97.3–99.1; O2SAT 90–98
[2024-01-22 04:19] LABS: Basophils # (auto) 0.1 10 ^3/uL (0-0.2); Basophils % (auto) 0.4 % (0.0-2.0); Eosinophils # (auto) 0.4 10 ^3/uL (0-0.8); Eosinophils % (auto) 1.6 % (0.0-7.0); Hematocrit 30.1 % (41.0-53.0); Hemoglobin 9.4 g/dL (13.5-17.5); Lymphocytes # (auto) 2.1 10 ^3/uL (0.4-5.4); Lymphocytes % (auto) 9.3 % (10.0-50.0); Mean Corpuscular Hemoglobin 28.4 pg (28.0-32.0); Mean Corpuscular Hgb Conc. 31.3 g/dL (32.0-36.0); Mean Corpuscular Volume 90.6 fL (80.0-100.0); Monocytes # (auto) 2.1 10 ^3/uL (0-1.3); Monocytes % (auto) 9.3 % (0.0-12.0); Neutrophils # (auto) 17.7 10 ^3/uL (1.6-8.6); Neutrophils % (auto) 79.4 % (37.0-80.0); Red Blood Cells 3.32 10^6/uL (4.5-5.90); Red Cell Distribution Width 18.2 % (11.8-14.3); White Blood Cell 22.4 10^3/uL (4.4-10.8)
[2024-01-22 04:31] LABS: INR 1.26 (0.9-1.15)
[2024-01-22 04:36] LABS: Alanine Aminotransferase 16 U/L (7-40); Albumin 3.5 g/dL (3.2-4.8); Alkaline Phosphatase 126 U/L (46-116); Anion Gap 11 (5-15); Aspartate Aminotransferase 29 U/L (13-40); BUN/Creatinine Ratio 21.2 (10.0-20.0); Blood Urea Nitrogen 66 mg/dL (9-23); Calcium 9.3 mg/dL (8.7-10.4); Carbon Dioxide 27 mmol/L (20-30); Chloride 99 mmol/L (98-107); Glucose 114 mg/dL (74-106); Potassium 3.6 mmol/L (3.5-5.1); Sodium 137 mmol/L (136-145)
[2024-01-22 04:37] LABS: Bilirubin, Total 0.8 mg/dL (0.2-1.0); Total Protein 6.4 g/dL (5.7-8.2)
[2024-01-22] MEDS ORDERED: HEPARIN DRIP/D5W 100UNITS/ML 250 ML IV SCH (05:00)
[2024-01-22 07:41] LABS: Base Excess 0.7 mmol/L (-2.0-2.0)
[2024-01-22] MEDS: CEFEPIME 2GM/50ML NS 50 ML IV SCH (10:18)
[2024-01-22] MEDS: IRON SUCROSE COMPLEX 100 ML IV SCH (12:11)
[2024-01-22] MEDS: BUMETANIDE 2.5mg/10ml (0.25 mg/ml) INJ IV SCH (18:12)
== END 2024-01-22 20:38 | disposition short-term general hospital (02) | DRG 870 ==
LOC: EDBD 14:32 → ER 14:32 → TELE 20:15 → ICU WEST 01-11 01:57
PROVIDERS: ADMIT Nurse Practitioner Family; ATTEND Internal Medicine
PROC: 02HV33Z Insertion of Infusion Device into Superior Vena Cava, Percutaneous Approach (ICD-10-PCS; principal; 2024-01-10)
PROC: B548ZZA Ultrasonography of Superior Vena Cava, Guidance (ICD-10-PCS; 2024-01-10)
PROC: 06HY33Z Insertion of Infusion Device into Lower Vein, Percutaneous Approach (ICD-10-PCS; 2024-01-10)
PROC: 5A1D70Z Performance of Urinary Filtration, Intermittent, Less than 6 Hours Per Day (ICD-10-PCS; 2024-01-10)
PROC: 5A1955Z Respiratory Ventilation, Greater than 96 Consecutive Hours (ICD-10-PCS; 2024-01-11)
PROC: 0BH17EZ Insertion of Endotracheal Airway into Trachea, Via Natural or Artificial Opening (ICD-10-PCS; 2024-01-11)
PROC: 5A1D70Z Performance of Urinary Filtration, Intermittent, Less than 6 Hours Per Day (ICD-10-PCS; 2024-01-11)
PROC: 5A09357 Assistance with Respiratory Ventilation, Less than 24 Consecutive Hours, Continuous Positive Airway Pressure (ICD-10-PCS; 2024-01-11)
PROC: 03HY32Z Insertion of Monitoring Device into Upper Artery, Percutaneous Approach (ICD-10-PCS; 2024-01-12)
PROC: 05HN33Z Insertion of Infusion Device into Left Internal Jugular Vein, Percutaneous Approach (ICD-10-PCS; 2024-01-12)
PROC: B544ZZA Ultrasonography of Left Jugular Veins, Guidance (ICD-10-PCS; 2024-01-12)
PROC: 5A1D70Z Performance of Urinary Filtration, Intermittent, Less than 6 Hours Per Day (ICD-10-PCS; 2024-01-15)
PROC: 5A1D70Z Performance of Urinary Filtration, Intermittent, Less than 6 Hours Per Day (ICD-10-PCS; 2024-01-17)
PROC: 02HV33Z Insertion of Infusion Device into Superior Vena Cava, Percutaneous Approach (ICD-10-PCS; 2024-01-18)
PROC: B548ZZA Ultrasonography of Superior Vena Cava, Guidance (ICD-10-PCS; 2024-01-18)
PROC: 5A1D70Z Performance of Urinary Filtration, Intermittent, Less than 6 Hours Per Day (ICD-10-PCS; 2024-01-19)
DX: A41.9 Sepsis, unspecified organism (principal); I50.43 Acute on chronic combined systolic (congestive) and diastolic (congestive) heart failure; R65.21 Severe sepsis with septic shock; N17.0 Acute kidney failure with tubular necrosis; J96.21 Acute and chronic respiratory failure with hypoxia; J96.22 Acute and chronic respiratory failure with hypercapnia; N18.6 End stage renal disease; I13.2 Hypertensive heart and chronic kidney disease with heart failure and with stage 5 chronic kidney disease, or end stage renal disease; I48.21 Permanent atrial fibrillation; Z68.41 Body mass index [BMI] 40.0-44.9, adult; D68.69 Other thrombophilia; Z99.11 Dependence on respirator [ventilator] status; J98.11 Atelectasis; E87.4 Mixed disorder of acid-base balance; N39.0 Urinary tract infection, site not specified; Z20.822 Contact with and (suspected) exposure to COVID-19; E66.01 Morbid (severe) obesity due to excess calories; E11.22 Type 2 diabetes mellitus with diabetic chronic kidney disease; D50.9 Iron deficiency anemia, unspecified; L89.159 Pressure ulcer of sacral region, unspecified stage; M10.9 Gout, unspecified; J44.9 Chronic obstructive pulmonary disease, unspecified; D69.6 Thrombocytopenia, unspecified; K59.00 Constipation, unspecified; Z99.2 Dependence on renal dialysis; Z90.81 Acquired absence of spleen; Z88.2 Allergy status to sulfonamides; Z87.891 Personal history of nicotine dependence; I25.2 Old myocardial infarction; Z79.01 Long term (current) use of anticoagulants; N40.1 Benign prostatic hyperplasia with lower urinary tract symptoms
CPT/HCPCS: 36415; 36569; 36600; 71045; 74177; 76705; 76775; 80048; 80053; 80061; 80074; 81001; 82306; 82607; 82728; 82805; 82962; 83036; 83540; 83550; 83605; 83735; 83880; 84100; 84443; 84484; 85007; 85025; 85027; 85610; 85730; 87040; 87070; 87077; 87081; 87086; 87186; 87205; 87426; 87804; 90935; 93005; 93306; 94002; 94003; 94640; 94660; 99291; C9113; G0378; J0171; J0692; J1450; J1642; J1756; J1815; J2185; J2250; J3480; J7060; P9047

== ENCOUNTER 2024-04-17 11:50 | Inpatient (IN) | payer OTHER, MEDICAID ==
[~2024-04-17] VITALS: Ht 180.3 cm; Wt 104.4 kg
[~2024-04-17 11:50] MED LIST: ALLO100T PO; AMLO1TAB22 PO; APIX5TAB PO; CARV6.2551 PO; FURO20TA3 PO; INSU1INJ3; LISI-275 PO; SODIPOW6; TAMS0.4C36 PO
[2024-04-17 12:46] VITALS: PULSE 67; RESP 18; O2SAT 92
[2024-04-17] MEDS: SODIUM CHLORIDE 0.9% 1,000 ML IV ONE (13:20)
[2024-04-17 14:18] LABS: Basophils # (auto) 0.2 10 ^3/uL (0-0.2); Basophils % (auto) 1.1 % (0.0-2.0); Eosinophils # (auto) 0.4 10 ^3/uL (0-0.8); Eosinophils % (auto) 3.1 % (0.0-7.0); Hematocrit 40.1 % (41.0-53.0); Hemoglobin 12.8 g/dL (13.5-17.5); Lymphocytes % (auto) 14.2 % (10.0-50.0); Mean Corpuscular Hemoglobin 29.7 pg (28.0-32.0); Mean Corpuscular Hgb Conc. 31.8 g/dL (32.0-36.0); Mean Corpuscular Volume 93.5 fL (80.0-100.0); Monocytes # (auto) 1.5 10 ^3/uL (0-1.3); Monocytes % (auto) 10.9 % (0.0-12.0); Neutrophils # (auto) 9.9 10 ^3/uL (1.6-8.6); Neutrophils % (auto) 70.7 % (37.0-80.0); Nucleated Red Blood Cells % 0.1 %; Red Blood Cells 4.29 10^6/uL (4.5-5.90); White Blood Cell 13.9 10^3/uL (4.4-10.8)
[2024-04-17 14:40] LABS: Alanine Aminotransferase 34 U/L (7-40); Albumin 3.8 g/dL (3.2-4.8); Alkaline Phosphatase 163 U/L (46-116); Anion Gap 8 (5-15); Aspartate Aminotransferase 49 U/L (13-40); BUN/Creatinine Ratio 13.4 (10.0-20.0); Bilirubin, Total 0.4 mg/dL (0.2-1.0); Blood Urea Nitrogen 48 mg/dL (9-23); Carbon Dioxide 29 mmol/L (20-30); Chloride 100 mmol/L (98-107); Creatine Kinase IFCC 25 U/L (46-171); Glucose 130 mg/dL (74-106); Potassium 4.7 mmol/L (3.5-5.1); Sodium 137 mmol/L (136-145); Total Protein 7.2 g/dL (5.7-8.2)
[2024-04-17] MEDS: SODIUM CHLORIDE 0.9% 500 ML IV ONE (16:18)
[2024-04-17] MEDS: cefTRIAXone 1GM/50ML D5W 50 ML IV ONE (16:18)
[2024-04-17] MEDS: FUROSEMIDE 20 MG/2 ML VIAL IV ONE (16:19)
[2024-04-17] MEDS ORDERED: MORPHINE SULFATE INJ 2 MG/ml SYRG IV PRN (20:45)
[2024-04-17] MEDS ORDERED: ACETAMINOPHEN 325 MG TAB PO PRN (20:45)
[2024-04-17] MEDS ORDERED: NITROGLYCERIN 0.4 MG SL TAB SL PRN (20:45)
[2024-04-17] MEDS ORDERED: ONDANSETRON HCL 4 MG/2 ML VIAL IV PRN (20:45)
[2024-04-17] MEDS ORDERED: DEXTROSE (50%) 50ML SYRG IV PRN (20:45)
[2024-04-17 22:10] VITALS: PULSE 74; RESP 15; O2SAT 98
[2024-04-17] MEDS: APIXABAN 5 MG TAB PO SCH (22:21)
[2024-04-17] MEDS: ACCU-CHEK COMFORT CURVE STRIP VI SCH (22:21)
[2024-04-17] MEDS: InsuLIN REG 1unit/0.01ml Soln (100units/ml) SC SCH (22:21)
[2024-04-18 04:24] LABS: Eosinophils # (auto) 0.6 10 ^3/uL (0-0.8); Mean Corpuscular Hemoglobin 29.6 pg (28.0-32.0); Mean Corpuscular Hgb Conc. 30.9 g/dL (32.0-36.0); Neutrophils % (auto) 61.7 % (37.0-80.0)
[2024-04-18 04:26] LABS: Basophils # (auto) 0.2 10 ^3/uL (0-0.2); Basophils % (auto) 1.4 % (0.0-2.0); Eosinophils % (auto) 4.4 % (0.0-7.0); Hematocrit 40.2 % (41.0-53.0); Hemoglobin 12.4 g/dL (13.5-17.5); Lymphocytes # (auto) 2.6 10 ^3/uL (0.4-5.4); Mean Corpuscular Volume 95.8 fL (80.0-100.0); Monocytes # (auto) 1.9 10 ^3/uL (0-1.3); Monocytes % (auto) 13.5 % (0.0-12.0); Neutrophils # (auto) 8.5 10 ^3/uL (1.6-8.6); Nucleated Red Blood Cells % 0.2 %; Red Cell Distribution Width 17.1 % (11.8-14.3); White Blood Cell 13.8 10^3/uL (4.4-10.8)
[2024-04-18] MEDS: FUROSEMIDE 20 MG TAB PO SCH (06:40)
[2024-04-18] MEDS ORDERED: BENZ100C97 PO (07:20)
[2024-04-18] MEDS ORDERED: CHOL500021 OR (07:20)
[2024-04-18] MEDS ORDERED: SENN-58 PO (07:21)
[2024-04-18] MEDS ORDERED: TAMS0.4C36 PO (07:21)
[2024-04-18] MEDS ORDERED: FINA1TAB16 OR (07:21)
[2024-04-18 08:00] VITALS: PULSE 79
[2024-04-18 08:38] VITALS: BP 108/63; PULSE 76; RESP 18; TEMP 98.5; O2SAT 96
[2024-04-18 11:01] LABS: Alanine Aminotransferase 34 U/L (7-40); Albumin 3.6 g/dL (3.2-4.8); Alkaline Phosphatase 146 U/L (46-116); Anion Gap 6 (5-15); Aspartate Aminotransferase 32 U/L (13-40); BUN/Creatinine Ratio 12.8 (10.0-20.0); Blood Urea Nitrogen 52 mg/dL (9-23); Calcium 9.6 mg/dL (8.5-10.1); Carbon Dioxide 29 mmol/L (20-30); Chloride 105 mmol/L (98-107); Cholesterol 119 mg/dL (< 200); Glucose 114 mg/dL (74-106); HDL Cholesterol 33 mg/dL (40-59); LDL Cholesterol 59 mg/dL (< 100); Magnesium 1.9 mg/dL (1.6-2.6); Potassium 4.6 mmol/L (3.5-5.1); Sodium 140 mmol/L (136-145); Triglycerides 149 mg/dL (< 150)
[2024-04-18 11:02] LABS: Bilirubin, Total 0.2 mg/dL (0.2-1.0); Total Protein 6.7 g/dL (5.7-8.2)
[2024-04-18 11:10] LABS: CRP High Sensitivity 2.27 mg/dL (<1.0)
[2024-04-18 12:38] VITALS: BP 107/55; PULSE 71; RESP 18; TEMP 98.6; O2SAT 98
[2024-04-18 13:15] LABS: Urine Bacteria FEW /hpf (None Seen); Urine Blood 2+ /uL (Negative); Urine Clarity Ex.Turbid (Clear); Urine Mucus FEW (None Seen); Urine Protein, UAD 2+ (Negative); Urine Specific Gravity 1.014 (1.001-1.035); Urine Urobilinogen Normal (Negative); Urine WBC 4012 /hpf (0 - 3); Urine WBC Clumps PRESENT /hpf (None Seen)
[2024-04-18 13:18] LABS: Urine Color Yellow (Yellow)
[2024-04-18] MEDS: cefTRIAXone 1GM/50ML D5W 50 ML IV ONE (15:03)
[2024-04-18 16:48] VITALS: BP 107/68; PULSE 71; RESP 18; TEMP 98.6; O2SAT 97
[2024-04-18 19:03] VITALS: BP 106/56; PULSE 76; RESP 18; TEMP 98; O2SAT 96
[2024-04-18 21:00] VITALS: BP 106/56; PULSE 76; RESP 18; TEMP 98; O2SAT 96
[2024-04-18 21:58] LABS: Folate (Folic Acid) 8.04 ng/mL (>5.38)
[2024-04-19 07:07] LABS: RPR Non Reactive (Non Reactive)
[2024-04-19] MEDS ORDERED: cefTRIAXone 1GM/50ML D5W 50 ML IV SCH (09:00)
== END 2024-04-18 22:37 | disposition short-term general hospital (02) | DRG 312 ==
LOC: EDBD 11:50 → EDUNIT# 11:50 → ER 11:53 → TELE 20:42 → TELE-WESTW 04-18 05:58
PROVIDERS: ADMIT Internal Medicine; ATTEND Emergency Medicine
DX: I95.2 Hypotension due to drugs (principal); N18.6 End stage renal disease; I13.2 Hypertensive heart and chronic kidney disease with heart failure and with stage 5 chronic kidney disease, or end stage renal disease; N39.0 Urinary tract infection, site not specified; T50.995A Adverse effect of other drugs, medicaments and biological substances, initial encounter; D72.829 Elevated white blood cell count, unspecified; D63.8 Anemia in other chronic diseases classified elsewhere; E86.0 Dehydration; I48.91 Unspecified atrial fibrillation; I50.9 Heart failure, unspecified; Z96.641 Presence of right artificial hip joint; E11.22 Type 2 diabetes mellitus with diabetic chronic kidney disease; Z99.2 Dependence on renal dialysis; Y92.89 Other specified places as the place of occurrence of the external cause; Z88.2 Allergy status to sulfonamides; Z79.4 Long term (current) use of insulin; Z79.899 Other long term (current) drug therapy; Z90.81 Acquired absence of spleen; Z87.891 Personal history of nicotine dependence
CPT/HCPCS: 36415; 70450; 71045; 80053; 80061; 81001; 82550; 82607; 82746; 82962; 83605; 83735; 83880; 84443; 84484; 85025; 86141; 86592; 87040; 87081; 87086; 93005; 93886; 96365; 99291; G0378; J1815